=== PATIENT | female | born 1955 | race Caucasian/White ===

== ENCOUNTER 2024-02-06 17:38 | Emergency (ER) | payer MEDICAID ==
[~2024-02-06] VITALS: Ht 152.4 cm; Wt 67.0 kg
[2024-02-06 18:06] VITALS: O2SAT 98
[2024-02-06 18:08] VITALS: BP 136/59; PULSE 65; RESP 18; TEMP 98; O2SAT 99
[2024-02-06] MEDS ORDERED: TRIA1TAB92 MT (18:24)
[2024-02-06] MEDS ORDERED: AMLO2.5T45 MT (18:24)
== END 2024-02-06 19:02 | disposition home or self-care (01) ==
LOC: ER 17:38
DX: I10 Essential (primary) hypertension (principal); E78.00 Pure hypercholesterolemia, unspecified; Z76.0 Encounter for issue of repeat prescription; Z98.51 Tubal ligation status; Z98.890 Other specified postprocedural states
CPT/HCPCS: 99281

== ENCOUNTER 2024-02-20 08:17 | Emergency (ER) | payer MEDICAID ==
[~2024-02-20] VITALS: Ht 152.4 cm; Wt 66.6 kg
[~2024-02-20 08:17] MED LIST: AMLO2.5T45 MT; TRIA1TAB92 MT
[2024-02-20 08:20] VITALS: O2SAT 98
[2024-02-20] MEDS ORDERED: AMOX1TAB16 MT (08:41)
[2024-02-20 08:57] VITALS: BP 131/66; PULSE 67; RESP 19; TEMP 36.66960; O2SAT 99
== END 2024-02-20 09:03 | disposition home or self-care (01) ==
LOC: ER 08:17
DX: J32.9 Chronic sinusitis, unspecified (principal); B96.89 Other specified bacterial agents as the cause of diseases classified elsewhere; E78.00 Pure hypercholesterolemia, unspecified; I10 Essential (primary) hypertension; Z98.890 Other specified postprocedural states; Z98.51 Tubal ligation status
CPT/HCPCS: 99283

== ENCOUNTER 2024-04-17 18:34 | Emergency (ER) | payer MEDICAID ==
[~2024-04-17] VITALS: Ht 149.9 cm; Wt 67.0 kg
[~2024-04-17 18:34] MED LIST changes: +AMOX1TAB16 MT
[2024-04-17 18:40] VITALS: O2SAT 97
[2024-04-17 20:10] VITALS: BP 115/66; PULSE 78; RESP 18; TEMP 36.94740; O2SAT 99
== END 2024-04-17 20:40 | disposition home or self-care (01) ==
LOC: ER 18:34
DX: B34.9 Viral infection, unspecified (principal); I10 Essential (primary) hypertension; E78.5 Hyperlipidemia, unspecified; Z79.899 Other long term (current) drug therapy; Z98.51 Tubal ligation status; Z20.822 Contact with and (suspected) exposure to COVID-19
CPT/HCPCS: 71045; 87426; 87804; 99284